=== PATIENT | male | born 1990 | race Caucasian/White ===

== ENCOUNTER 2020-04-28 23:35 | Emergency (ER) | payer OTHER ==
[~2020-04-28 23:35] MED LIST: BACTROBAN CREAM15 GM TOP
== END 2020-04-29 02:16 | disposition left against medical advice (07) ==
LOC: ER1 23:35
DX: R10.11 Right upper quadrant pain (principal); Z53.21 Procedure and treatment not carried out due to patient leaving prior to being seen by health care provider
CPT/HCPCS: 93005